=== PATIENT | male | born 1985 | race Caucasian/White ===

== ENCOUNTER 2017-04-27 20:01 | Emergency (ER) | payer BC, OTHER ==
[2017-04-27 20:13] VITALS: BP 120/69
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
[2017-04-27] MEDS ORDERED: HYDROCODONE/ACETAMINOPHEN 5-325 MG 6 TAB/DSPK PO PRN (21:22)
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
== END 2017-04-27 21:36 | disposition home or self-care (01) ==
LOC: ER 20:01
DX: S16.1XXA Strain of muscle, fascia and tendon at neck level, initial encounter (principal); R51 Headache; R42 Dizziness and giddiness; R11.0 Nausea; V89.2XXA Person injured in unspecified motor-vehicle accident, traffic, initial encounter
CPT/HCPCS: 99284; 70450; 72125; L0120

== ENCOUNTER 2017-07-31 15:08 | Inpatient (IN) | payer OTHER ==
[2017-07-31] MEDS ORDERED: DIPH/PERTUSS(ACELL)/TETANUS VAC/PF 0.5 ML SYR (>=10YO) IM ONE (16:08)
[2017-07-31] MEDS ORDERED: PIPERACILLIN/TAZOBACTAM 4.5 GM VIAL IV ONE (16:24)
--- NOTE | 2017-07-31 16:24 | RADIOLOGY REPORT (SQ) ---
EXAM DESCRIPTION: HAND LEFT 3 VIEWS COMPLETED DATE/TIME: 07/31/2017 4:16 pm REASON FOR STUDY: cat bite left index COMPARISON: None. EXAM PARAMETERS: NUMBER OF VIEWS: Three views. TECHNIQUE: AP, lateral and oblique radiographic images acquired of the left hand. LIMITATIONS: None. FINDINGS: MINERALIZATION: Normal. BONES: No acute fracture or dislocation. No worrisome bone lesions. JOINTS: No effusions. SOFT TISSUES: There is soft tissue swelling index finger. OTHER: No other significant finding. IMPRESSION: Soft tissue swelling. No osseous abnormality. TECHNICAL DOCUMENTATION: JOB ID: [id number] [employer]- All Rights Reserved Reading location - IP/workstation name: [email or web address]
--- NOTE | 2017-07-31 16:35 | ER Document Report ---
ED Animal Bite - General Chief Complaint: Cat Bite Stated Complaint: CAT BITE Time Seen by Provider: 07/31/17 16:02 Mode of Arrival: Ambulatory Information source: Patient TRAVEL OUTSIDE OF THE [place] IN LAST 30 DAYS: No - HPI Patient complains to provider of: left index finger bite Location of injury: LUE Severity of injury: Bitten Onset: Yesterday Type of animal: Cat Notes: Patient is here with complaints of left index finger bite by his cat which occurred yesterday. States that he was trying to give his A bath when the cat bit his left index finger at the proximal phalanx. This morning he woke up and noticed that the finger was red, swollen and painful. No drainage. No fever. He denies any numbness or tingling. He denies any nausea, vomiting, diarrhea. He believes his last tetanus was approximately 8 years ago. He denies any chest pain or shortness of breath. He has no other complaints. Pain is worse with extension as well as palpation of the finger, nothing seems to make it better. - Related Data Allergies/Adverse Reactions: No Known Allergies Allergy (Verified 07/31/17 15:10) Past Medical History - Social History Smoking Status: Unknown if Ever Smoked Family History: Reviewed & Not Pertinent Patient has suicidal ideation: No Patient has homicidal ideation: No Renal/ Medical History: Denies: Hx Peritoneal Dialysis Past Surgical History: Reports: Hx Orthopedic Surgery - left wrist Review of Systems - Review of Systems -: Yes All other systems reviewed and negative Physical Exam - Vital signs Vitals: Temp Pulse Resp BP Pulse Ox 98.4 F 57 L 14 116/63 98 07/31/17 15:16 07/31/17 15:16 07/31/17 15:16 07/31/17 15:16 07/31/17 15:16 - Notes Notes: GENERAL: alert, cooperative, nontoxic, no distress. HEAD: normocephalic, atraumatic EYES: conjunctiva pink without discharge, no external redness or swelling. EARS: no external swelling, no external redness NOSE: atraumatic, no external swelling MOUTH/THROAT: mucous membranes moist and pink NECK: soft, supple, full range of motion, no meningismus. CHEST: no distress, lungs clear and equal throughout. No wheezing, rales, rhonchi. CARDIAC: regular rate and rhythm, no murmur, normal capillary refill, normal pulses. BACK: full range of motion, no CVA tenderness. EXTREMITIES: Small puncture wounds to the dorsal and palmar side of the left index finger at the proximal phalanx. Patient is noted to have swelling to the entire left index finger with most of the swelling being the proximal phalanx. Finger is in a mildly flexed position. He has tenderness along the flexor tendon as well as mild tenderness with extension of the finger. He has redness to the entire left index finger up to the MCP joint. Normal cap refill and sensation. NEURO: alert and oriented 3, no focal deficits, full range of motion of all extremities. PYSCH: appropriate mood, affect. Patient is cooperative. SKIN: pink, warm, dry, no rash. Course - Re-evaluation Re-evalutation: 07/31/17 16:35 Patient is nontoxic appearing with stable vitals. The patient was bit by his cat yesterday on the left index finger at the proximal phalanx and now has redness and swelling with flexion of the finger and exam findings consistent with early flexor tenosynovitis. Patient was seen and evaluated by Dr. [facility], he will be taking the patient to surgery. Patient had his tetanus updated. CBC, CMP, sed rate, CRP are currently pending at this time. X-ray shows no acute findings. Patient had his tetanus updated and was given IV Unasyn. - Vital Signs Vital signs: Temp Pulse Resp BP Pulse Ox 98.4 F 57 L 14 116/63 98 07/31/17 15:16 07/31/17 15:16 07/31/17 15:16 07/31/17 15:16 07/31/17 15:16 - Diagnostic Test Radiology reviewed: Image reviewed, Reports reviewed - No acute findings. Discharge - Discharge Clinical Impression: Flexor tenosynovitis of finger Cat bite of finger Qualifiers: Encounter type: initial encounter Qualified Code(s): S61.259A - Open bite of unspecified finger without damage to nail, initial encounter; W55.01XA - Bitten by cat, initial encounter; W55.01XA - Bitten by cat, initial encounter Condition: Stable Disposition: ADMITTED INPATIENT Admitting Provider: [facility] Admitted: Surgical Floor
--- NOTE | 2017-07-31 16:40 | PDOC H&P ---
History of Present Illness Patient complains of: Bite left index finger History of Present Illness: EDITH FISCHER is a 31 year old male who sustained a cat bite to his left index finger from his cat yesterday at around noon. He attempted to get the cats mouth office finger which he feels as though possibly worsened the bite wound. He denies numbness or tingling but has noticed increasing redness swelling and pain over the past 24 hours with difficulty straightening his finger. Pain 7/10. Denies fever or chills. Past Medical History Medical History: None Past Surgical History Past Surgical History: Reports: Orthopedic Surgery - left wrist Social History Smoking Status: Unknown if Ever Smoked Family History Family History: Reviewed & Not Pertinent Parental Family History Reviewed: No Children Family History Reviewed: No Sibling(s) Family History Reviewed.: No Medication/Allergy Home Medications: Cyclobenzaprine HCl [Flexeril 10 Mg Tablet] 10 mg PO TID #15 tablet 04/27/17 Naproxen [Naprosyn 250 Nmg Tablet] 1 tab PO BID #14 tablet 04/27/17 Allergies/Adverse Reactions: No Known Allergies Allergy (Verified 07/31/17 15:10) Review of Systems Constitutional: ABSENT: chills, fever(s), headache(s), weight gain, weight loss Eyes: ABSENT: visual disturbances Ears: ABSENT: hearing changes Cardiovascular: ABSENT: chest pain, dyspnea on exertion, edema, orthropnea, palpitations Respiratory: ABSENT: cough, hemoptysis Gastrointestinal: ABSENT: abdominal pain, constipation, diarrhea, hematemesis, hematochezia, nausea, vomiting Genitourinary: ABSENT: dysuria, hematuria Musculoskeletal: PRESENT: as per HPI Integumentary: ABSENT: rash, wounds Neurological: ABSENT: abnormal gait, abnormal speech, confusion, dizziness, focal weakness, syncope Psychiatric: ABSENT: anxiety, depression, homidical ideation, suicidal ideation Endocrine: ABSENT: cold intolerance, heat intolerance, menstrual abnormalities, polydipsia, polyuria Hematologic/Lymphatic: ABSENT: easy bleeding, easy bruising, lymphadenopathy Physical Exam Vital Signs: Temp Pulse Resp BP Pulse Ox 98.4 F 57 L 14 116/63 98 07/31/17 15:16 07/31/17 15:16 07/31/17 15:16 07/31/17 15:16 07/31/17 15:16 Intake & Output 07/30/17 07/31/17 08/01/17 06:59 06:59 06:59 Weight 71.2 kg General appearance: PRESENT: no acute distress, well-developed, well-nourished Head exam: PRESENT: atraumatic, normocephalic Eye exam: PRESENT: conjunctiva pink, EOMI, PERRLA. ABSENT: scleral icterus Ear exam: PRESENT: normal external ear exam Mouth exam: PRESENT: moist, tongue midline Neck exam: PRESENT: full ROM. ABSENT: carotid bruit, JVD, lymphadenopathy, thyromegaly Respiratory exam: PRESENT: unlabored Cardiovascular exam: PRESENT: RRR. ABSENT: diastolic murmur, rubs, systolic murmur Pulses: PRESENT: normal dorsalis pedis pul, +2 pedal pulses bilateral Vascular exam: PRESENT: normal capillary refill GI/Abdominal exam: PRESENT: normal bowel sounds, soft. ABSENT: distended, guarding, mass, organolmegaly, rebound, tenderness Rectal exam: PRESENT: deferred Musculoskeletal exam: PRESENT: other - Left index finger: Redness and swelling throughout the index finger. Fusiform swelling noted. Tenderness on the A1 kwabena, A2 kwabena and distally. Pain with passive extension. Light wounds volar and dorsal no active drainage. Cap refill less than 2 seconds. No sensory deficits. Intact DIP/PIP flexion. Neurological exam: PRESENT: alert, awake, oriented to person, oriented to place , oriented to time, oriented to situation, CN II-XII grossly intact. ABSENT: motor sensory deficit Psychiatric exam: PRESENT: appropriate affect, normal mood. ABSENT: homicidal ideation, suicidal ideation Skin exam: PRESENT: dry, intact, warm. ABSENT: cyanosis, rash Results Impressions: Hand X-Ray 07/31/17 16:08 IMPRESSION: Soft tissue swelling. No osseous abnormality. Status: Image reviewed by me - I have reviewed patient's radiographs which demonstrate evidence of soft tissue swelling. No osseous abnormality. Assessment & Plan - Diagnosis (1) Flexor tenosynovitis of finger Is this a current diagnosis for this admission?: Yes Plan: Patient has findings of flexor tenosynovitis of his left index finger. Today we discussed treatment options. Given the severity and worsening it may occur especially given patient's mechanism of injury decision was made to proceed with operative treatment which includes irrigation debridement left index finger flexor sheath. Risks and benefits of the surgical procedure have been explained to the patient risks including neurovascular risk, postoperative pain , postoperative stiffness, worsening infection requiring repeat operative intervention he has verbalized understanding consented for the procedure.
[2017-07-31] MEDS ORDERED: FENTANYL CITRATE INJ/PF 100 MCG/2 ML AMPUL ONE (16:44)
[2017-07-31] MEDS ORDERED: MIDAZOLAM 2 MG/2 ML INJ ONE (16:44)
[2017-07-31] MEDS ORDERED: PROPOFOL INJ 200 MG/20 ML VIAL IV ONE (16:44)
[2017-07-31] MEDS ORDERED: ACETAMINOPHEN 100 ML IV ONE (16:45)
[2017-07-31 16:59] LABS: ABSOLUTE BASOPHILS # (AUTO) 0.1 10^3/uL (0.0-0.2); ABSOLUTE EOSINOPHILS # (AUTO) 0.1 10^3/uL (0.0-0.6); ABSOLUTE LYMPHOCYTES (AUTO) 3.3 10^3/uL (0.5-4.7); ABSOLUTE MONOCYTES (AUTO) 0.8 10^3/uL (0.1-1.4); ABSOLUTE NEUT (AUTO) 5.4 10^3/uL (1.7-8.2); BASOPHILS % (AUTO) 0.7 % (0-2); EOSINOPHILS % (AUTO) 0.9 % (0-6); HEMOGLOBIN 14.5 g/dL (13.5-17.0); LYMPHOCYTES % (AUTO) 34.1 % (13-45); MEAN CORPUSCULAR HEMOGLOBIN 31.9 pg (27.0-33.4); MEAN CORPUSCULAR HGB CONC 34.6 g/dL (32.0-36.0); MEAN CORPUSCULAR VOLUME 92 fl (80-97); MONOCYTES % (AUTO) 8.1 % (3-13); PLATELET COUNT 227 10^3/uL (150-450); RED BLOOD COUNT 4.55 10^6/uL (4.35-5.55); RED CELL DISTRIBUTION WIDTH 14.1 % (11.5-14.0); SEGMENTED NEUTROPHILS % (AUTO) 56.2 % (42-78); TOTAL CELLS COUNTED % (AUTO) 100 %; WHITE BLOOD COUNT 9.6 10^3/uL (4.0-10.5)
[2017-07-31 17:22] LABS: ALANINE AMINOTRANSFERASE 27 U/L (21-72); ALBUMIN 4.8 g/dL (3.5-5.0); ALKALINE PHOSPHATASE 52 U/L (38-126); ANION GAP 11 (5-19); ASPARTATE AMINO TRANSFERASE 17 U/L (17-59); BILIRUBIN,DIRECT 0.3 mg/dL (0.0-0.4); BILIRUBIN,TOTAL 0.7 mg/dL (0.2-1.3); BLOOD UREA NITROGEN 12 mg/dL (7-20); C-REACTIVE PROTEIN 25.7 mg/L (<10.0); CALCIUM 9.8 mg/dL (8.4-10.2); CARBON DIOXIDE 25 mmol/L (22-30); CHLORIDE 108 mmol/L (98-107); GLUCOSE 75 mg/dL (75-110); POTASSIUM 4.5 mmol/L (3.6-5.0); SODIUM 143.8 mmol/L (137-145); TOTAL PROTEIN 8.3 g/dL (6.3-8.2)
[2017-07-31 17:41] LABS: ERYTHROCYTE SEDIMENTATION RATE 17 mm/hr (0-15)
[2017-07-31] MEDS ORDERED: LIDOCAINE 1% INJ-PF (10 MG/ML) 30 ML SDV ONE (18:06)
[2017-07-31] MEDS ORDERED: BACITRACIN INJ 50,000 UNIT VIAL ONE (18:06)
[2017-07-31] MEDS ORDERED: BUPIVACAINE HCL 0.25 % INJ/PF (2.5 MG/1 ML) 30 ML VIAL ONE (18:06)
[2017-07-31] MEDS ORDERED: ONDANSETRON 4 MG TAB.RAPDIS PO PRN (18:23)
[2017-07-31] MEDS ORDERED: DIPHENHYDRAMINE HCL 50 MG/ML VIAL IV PRN ×2 (18:23→18:34)
[2017-07-31] MEDS ORDERED: MAG HYDROX/AL HYDROX/SIMETH SUSP 30 ML UDCUP PO PRN (18:25)
[2017-07-31] MEDS ORDERED: MEPERIDINE HCL/PF INJ 25 MG/1 ML DISP.SYRIN IV PRN (18:34)
[2017-07-31] MEDS ORDERED: FENTANYL CITRATE INJ/PF 100 MCG/2 ML AMPUL IV PRN ×3 (18:34)
[2017-07-31] MEDS ORDERED: OXYCODONE-ACETAMINOPHEN 5-325 MG TABLET PO PRN ×2 (18:34)
[2017-07-31] MEDS ORDERED: PROMETHAZINE HCL INJ 25 MG/1 ML VIAL IV PRN ×2 (18:34)
--- NOTE | 2017-07-31 18:49 | Operative Report ---
Operative Report DATE OF SURGERY: 07/31/17 PREOPERATIVE DIAGNOSIS: Flexor tenosynovitis left index finger POSTOPERATIVE DIAGNOSIS: Same OPERATION: Irrigation debridement tendon sheath left index finger SURGEON: TRINH DSOUZA ANESTHESIA: LMAC TISSUE REMOVED OR ALTERED: Aerobic and anaerobic cultures COMPLICATIONS: None ESTIMATED BLOOD LOSS: Minimal PROCEDURE: Indication for above procedure: 31-year-old male who sustained a cat bite injury to his left index finger PIP joint. Over the past 24 hours noticed increasing redness swelling and pain. Patient presented to the emergency room where there were concerns for flexor tenosynovitis. Upon consultation I felt patient had evidence of either early or actual flexor tenosynovitis. At that point I discussed treatment options including operative versus nonoperative intervention. Risks and benefits were explained to the patient, patient verbalized understanding consented for the procedure. . Procedure In Detail: Patient was seen and evaluated in the preoperative holding area. The LEFT upper extremity was initialized and marked. Patient received 2g of Ancef IV for bacterial prophylaxis. Patient was taken back to the operative room where transferred to the operative table. Once they were adequately anesthetized a nonsterile tourniquet was placed on the upper extremity. A surgical team debriefing was performed ensuring all instrumentation was available, the surgical procedure was discussed with possible concerns reviewed. A digital block was performed utilizing 10 mL 50:50 mixture of 0.5% Marcaine and 1% lidocaine without epinephrine. The upper extremity was prepped with chlorhexidine and alcohol and draped in a sterile fashion. A timeout was done identifying correct patient, procedure and extremity everyone in attendance agree with this and verbalized no concerns. The extremity was exsanguinated the tourniquet was inflated to 200 mmHg. Longitudinal skin incision was made centered over the A1 kwabena of the index finger. The radial and ulnar neurovascular bundles were identified and retracted from the wound. The A1 kwabena was identified and incised. The A1 kwabena was released to the level of the A2 kwabena but not through the A2 kwabena. There was cloudy appearing fluid but no gross purulence. The palmar aponeurotic kwabena was released proximal to the A1 kwabena. A second oblique skin incision was made over the volar wound at the level of the PIP joint. Blunt dissection was once again performed. The A3 kwabena was then incised. Further irrigation was performed once again mild cloudy appearing material but no gross purulence. A third and final incision was made just proximal to the DIP joint. Blunt dissection was performed the cruciate kwabena at this level was opened no gross purulence or fluid was appreciated at this level. The wound was then copiously irrigated with normal saline. I then passed a pediatric feeding tube from proximal to distal and irrigated through the feeding tube. The feeding tube was left in place to act as a drain. Skin incisions were closed with interrupted 4-0 nylon suture. We will dressed with Xeroform 4 x 4's and a soft dressing. Sponge counts, instrument counts, needle counts counts were correct. Patient was then awoken from anesthesia. Transferred from the operating room table to the operating room stretcher. There was no intraoperative complications patient tolerated procedure well stable to PACU. Postoperative plan: Patient will be started on Augmentin to cover Pasteurella species. Depending on clinical examination findings anticipate discharge within 24-48 hours
[2017-07-31] MEDS: OXYCODONE HCL IR 5 MG TABLET PO PRN (21:06)
[2017-07-31] MEDS: OXYCODONE HCL SR 10 MG TABLET PO SCH (21:52)
[2017-08-01] MEDS: KETOROLAC TROMETHAMINE INJ/PF 30 MG/1 ML SDV IV SCH ×5 (00:06→23:40)
[2017-08-01] MEDS: AMPICILLIN SOD/SULBACTAM 3 GM VIAL IV SCH ×5 (00:06→23:39)
[2017-08-01] MEDS ORDERED: ACETAMINOPHEN 100 ML IV ONE (00:23)
[2017-08-01 07:41] LABS: HEMATOCRIT 36.4 % (37.9-51.0); MEAN CORPUSCULAR HEMOGLOBIN 31.4 pg (27.0-33.4); MEAN CORPUSCULAR HGB CONC 33.9 g/dL (32.0-36.0); MEAN CORPUSCULAR VOLUME 93 fl (80-97); PLATELET COUNT 201 10^3/uL (150-450); RED BLOOD COUNT 3.93 10^6/uL (4.35-5.55); RED CELL DISTRIBUTION WIDTH 14.1 % (11.5-14.0); WHITE BLOOD COUNT 10.3 10^3/uL (4.0-10.5)
[2017-08-01 07:46] LABS: HEMOGLOBIN 12.4 g/dL (13.5-17.0)
[2017-08-01 07:54] LABS: ANION GAP 10 (5-19); BLOOD UREA NITROGEN 14 mg/dL (7-20); CALCIUM 8.9 mg/dL (8.4-10.2); CARBON DIOXIDE 24 mmol/L (22-30); CHLORIDE 108 mmol/L (98-107); GLUCOSE 78 mg/dL (75-110); POTASSIUM 4.2 mmol/L (3.6-5.0); SODIUM 141.6 mmol/L (137-145)
[2017-08-01] MEDS: OXYCODONE HCL SR 10 MG TABLET PO SCH ×2 (11:12→22:04)
[2017-08-01] MEDS: OXYCODONE HCL IR 5 MG TABLET PO PRN (17:33)
--- NOTE | 2017-08-01 18:26 | PDOC PROGRESS REPORT ---
Subjective Progress Note for:: 08/01/17 Subjective:: 81-year-old white male 1 day status post irrigation and drainage left index finger flexor tenosynovitis. Patient sitting upright in hospital bed comfortable. His OpSite compression dressing is in place and clean dry and intact. Patient is curious when he can be discharged. It was relayed to patient that we would like to await results of intraoperative cultures drawn to assure that they were negative before discharge. Patient voiced understanding and is in agreement with this plan. Reason For Visit: FLEXOR TENOSYNOVITIS OF LEFT INDEX FINGER Physical Exam Vital Signs: Temp Pulse Resp BP Pulse Ox 36.8 C 51 L 15 106/72 100 08/01/17 15:27 08/01/17 15:27 08/01/17 15:27 08/01/17 15:27 08/01/17 15:27 Intake & Output 07/31/17 08/01/17 08/02/17 06:59 06:59 06:59 Intake Total 1700 1221 Output Total 1000 Balance 700 1221 General appearance: PRESENT: no acute distress, well-developed, well-nourished Head exam: PRESENT: atraumatic, normocephalic Eye exam: PRESENT: EOMI Mouth exam: PRESENT: moist Respiratory exam: PRESENT: unlabored Pulses: PRESENT: normal dorsalis pedis pul, +2 pedal pulses bilateral Vascular exam: PRESENT: normal capillary refill Additional comments: Patient sitting upright in hospital bed. Postoperative compression dressing is placed on left index finger and hand. It is clean dry and intact. This is left in place. He maintains full range of flexors and extensors of all digits. Less than 2 seconds capillary refill to all fingers. No sensory motor deficits. Slight tingling and numbness noted along the palmar aspect of left index finger. Musculoskeletal exam: PRESENT: ambulatory Additional comments: No sensorimotor deficits noted, arm lengths equal distal neurovascular exam intact. Patient will initiate gentle range of motion exercises once postoperative compression dressing is removed. Neurological exam: PRESENT: alert, awake, oriented to person, oriented to place , oriented to time, oriented to situation, CN II-XII grossly intact. ABSENT: motor sensory deficit Psychiatric exam: PRESENT: appropriate affect, normal mood. ABSENT: homicidal ideation, suicidal ideation Skin exam: PRESENT: dry, intact, warm. ABSENT: cyanosis, rash Results Laboratory Results: 08/01/17 06:43 03/21/18 06:43 08/01/17 08/01/17 06:43 06:43 WBC 10.3 RBC 3.93 L Hgb 12.4 L D Hct 36.4 L MCV 93 MCH 31.4 MCHC 33.9 RDW 14.1 H Plt Count 201 Sodium 141.6 Potassium 4.2 Chloride 108 H Carbon Dioxide 24 Anion Gap 10 BUN 14 Creatinine 0.82 Est GFR ( Amer) > 60 Est GFR (Non-Af Amer) > 60 Glucose 78 Calcium 8.9 Impressions: Hand X-Ray 07/31/17 16:08 IMPRESSION: Soft tissue swelling. No osseous abnormality. Assessment & Plan - Diagnosis (1) Flexor tenosynovitis of finger Is this a current diagnosis for this admission?: Yes - Plan Summary Plan Summary: 31-year-old white male 1 day status post irrigation and drainage left index finger flexor Zaira synovitis. Patient's OpSite compression dressing clean dry and intact. This is left in place. No sensory motor deficits at this time. We are awaiting intraoperative culture results. Pending negative results, patient will be discontinued from IV antibiotics and transitioned to p.o. antibiotics. His white blood cell count remains within normal acceptable levels. I do not anticipate patient remaining in hospital through the weekend. He will likely be discharged once with cultures are completed. Patient understands and is in agreement with this plan. He will initiate gentle range of motion exercises once discharged from the hospital and his compression dressing is removed. He will follow-up with [facility] for surgery and Dr. Driscoll 10 days postoperatively for reevaluation.
[2017-08-02] MEDS: KETOROLAC TROMETHAMINE INJ/PF 30 MG/1 ML SDV IV SCH ×3 (05:03→18:12)
[2017-08-02] MEDS: AMPICILLIN SOD/SULBACTAM 3 GM VIAL IV SCH ×3 (05:04→18:14)
[2017-08-02 07:01] LABS: MEAN CORPUSCULAR HEMOGLOBIN 32.1 pg (27.0-33.4); MEAN CORPUSCULAR HGB CONC 34.2 g/dL (32.0-36.0); MEAN CORPUSCULAR VOLUME 94 fl (80-97); PLATELET COUNT 206 10^3/uL (150-450); RED BLOOD COUNT 4.05 10^6/uL (4.35-5.55); RED CELL DISTRIBUTION WIDTH 13.9 % (11.5-14.0); WHITE BLOOD COUNT 8.1 10^3/uL (4.0-10.5)
[2017-08-02] MEDS ORDERED: INFLUENZA ADLT QUAD (36MOS+) 2017-18 VAC 0.5 ML SYR IM PRN (09:37)
[2017-08-02] MEDS: OXYCODONE HCL SR 10 MG TABLET PO SCH (10:00)
[2017-08-02] MEDS: OXYCODONE HCL IR 5 MG TABLET PO PRN ×2 (15:04→21:25)
--- NOTE | 2017-08-02 20:14 | PDOC PROGRESS REPORT ---
Subjective Progress Note for:: 08/02/17 Subjective:: Patient states the pain is better controlled today. No issues overnight. Reason For Visit: FLEXOR TENOSYNOVITIS OF LEFT INDEX FINGER Physical Exam Vital Signs: Temp Pulse Resp BP Pulse Ox 36.6 C 59 L 16 119/68 98 08/02/17 14:09 08/02/17 14:09 08/02/17 14:09 08/02/17 14:09 08/02/17 14:09 Intake & Output 08/01/17 08/02/17 08/03/17 06:59 06:59 06:59 Intake Total 1700 2020 Output Total 1000 Balance 700 2020 Adult Front & Back Image: 1 - Dressing is dry clean and intact with small area of shadowing from drainage. Drain still in place. Sensation to light touch and good capillary refill Results Laboratory Results: 08/02/17 06:39 08/01/17 06:43 08/02/17 06:39 WBC 8.1 RBC 4.05 L Hgb 13.0 L Hct 38.0 MCV 94 MCH 32.1 MCHC 34.2 RDW 13.9 Plt Count 206 Impressions: Hand X-Ray 07/31/17 16:08 IMPRESSION: Soft tissue swelling. No osseous abnormality. Assessment & Plan - Plan Summary Plan Summary: 31-year-old gentleman status post I&D of a flexor tenosynovitis in the left hand. Awaiting any growth from cultures. Anticipate discharge tomorrow.
[2017-08-03] MEDS: AMPICILLIN SOD/SULBACTAM 3 GM VIAL IV SCH ×2 (00:46→08:25)
[2017-08-03] MEDS: OXYCODONE HCL IR 5 MG TABLET PO PRN ×2 (03:16→08:36)
[2017-08-03 06:45] LABS: HEMATOCRIT 38.7 % (37.9-51.0); HEMOGLOBIN 13.4 g/dL (13.5-17.0); MEAN CORPUSCULAR HEMOGLOBIN 31.6 pg (27.0-33.4); MEAN CORPUSCULAR HGB CONC 34.5 g/dL (32.0-36.0); MEAN CORPUSCULAR VOLUME 92 fl (80-97); PLATELET COUNT 226 10^3/uL (150-450); RED BLOOD COUNT 4.22 10^6/uL (4.35-5.55); RED CELL DISTRIBUTION WIDTH 13.6 % (11.5-14.0); WHITE BLOOD COUNT 8.7 10^3/uL (4.0-10.5)
[2017-08-03] MEDS ORDERED: AMPICILLIN SOD/SULBACTAM 3 GM VIAL ONE (08:07)
[2017-08-03 11:38] VITALS: BP 116/63
--- NOTE | 2017-08-07 11:50 | PDOC DISCHARGE SUMMARY ---
General - Admit/Disc Date/PCP Admission Date/Primary Care Provider: 07/31/17 18:25 Discharge Date: 08/03/17 - Discharge Diagnosis (1) Flexor tenosynovitis of finger Is this a current diagnosis for this admission?: Yes - Additional Information Resuscitation Status: Full Code Prescriptions: Amox Tr/Potassium Clavulanate [Augmentin 875-125 mg Tablet] 1 tab PO BID #20 tablet Oxycodone HCl/Acetaminophen [Percocet 5-325 mg Tablet] 1 - 2 tab PO ASDIR PRN # 25 tablet PRN Reason: Home Medications: Amox Tr/Potassium Clavulanate [Augmentin 875-125 mg Tablet] 1 tab PO BID #20 tablet 08/03/17 Oxycodone HCl/Acetaminophen [Percocet 5-325 mg Tablet] 1 - 2 tab PO ASDIR PRN # 25 tablet 08/03/17 History of Present Illness History of Present Illness: EDITH FISCHER is a 31 year old male who sustained a cat bite to his left index finger from his cat yesterday at around noon. He attempted to get the cats mouth office finger which he feels as though possibly worsened the bite wound. He denies numbness or tingling but has noticed increasing redness swelling and pain over the past 24 hours with difficulty straightening his finger. Pain 7/10. Denies fever or chills. Hospital Course Hospital Course: Patient was admitted to orthopedic service on 08/01/17 with diagnosis of flexor tenosynovitis of his left index finger. Patient was started on Unasyn for coverage of possible offending bacteria. He continued on IV antibiotics for the next 72 hours. Cultures continue to demonstrate no evidence of growth. On 08/03/17 dressing was changed and drain was removed. Patient had some residual swelling but his pain had nearly improved. Denies fever chills or sweats. Given the lack of growth and patient's clinical improvement decision was made for discharge to home. Physical Exam Vital Signs: Temp Pulse Resp BP Pulse Ox 98.0 F 50 L 16 114/72 98 08/03/17 04:08 08/03/17 04:08 08/03/17 04:08 08/03/17 04:08 08/03/17 04:08 Intake & Output 08/02/17 08/03/17 08/04/17 06:59 06:59 06:59 Intake Total 2021 Balance 2020 General appearance: PRESENT: no acute distress, well-developed, well-nourished Head exam: PRESENT: atraumatic, normocephalic Eye exam: PRESENT: conjunctiva pink, EOMI, PERRLA. ABSENT: scleral icterus Ear exam: PRESENT: normal external ear exam Mouth exam: PRESENT: moist, tongue midline Neck exam: PRESENT: full ROM. ABSENT: carotid bruit, JVD, lymphadenopathy, thyromegaly Cardiovascular exam: PRESENT: RRR. ABSENT: diastolic murmur, rubs, systolic murmur Pulses: PRESENT: normal dorsalis pedis pul, +2 pedal pulses bilateral Vascular exam: PRESENT: normal capillary refill GI/Abdominal exam: PRESENT: normal bowel sounds, soft. ABSENT: distended, guarding, mass, organolmegaly, rebound, tenderness Rectal exam: PRESENT: deferred Musculoskeletal exam: PRESENT: other - Left index finger: Surgical incisions healing mild serosanguineous drainage. No evidence of purulence drainage. Erythema and swelling notably improved. Continues to have pain with forced terminal flexion and extension. Cap refill less than 2 seconds no sensory deficits. Neurological exam: PRESENT: alert, awake, oriented to person, oriented to place , oriented to time, oriented to situation, CN II-XII grossly intact. ABSENT: motor sensory deficit Psychiatric exam: PRESENT: appropriate affect, normal mood. ABSENT: homicidal ideation, suicidal ideation Skin exam: PRESENT: dry, intact, warm. ABSENT: cyanosis, rash Results Laboratory Results: 08/03/17 06:04 08/01/17 06:43 08/03/17 06:04 WBC 8.7 RBC 4.22 L Hgb 13.4 L Hct 38.7 MCV 92 MCH 31.6 MCHC 34.5 RDW 13.6 Plt Count 226 Impressions: Hand X-Ray 07/31/17 16:08 IMPRESSION: Soft tissue swelling. No osseous abnormality. Qualifiers - * PATEINT BEING DISCHARGED WITH ANY OF THE FOLLOWING DIAGNOSIS?: No Plan Discharge Plan: Given the fact patient has failed to see growth but there is clinical improvement decision was made for patient to be discharged home with p.o. antibiotics. If cultures change or sensitivities demonstrate alternative bacteria will change his antibiotics. Current plan is discharge home on Augmentin. Patient will follow-up the office in 10 days for recheck or sooner if issues arise including increasing pain, redness, drainage temperature greater than 101.5. Patient was read above instructions understood above instructions is orthopedically stable for discharge to home.
== END 2017-08-03 12:30 | disposition home or self-care (01) | DRG 581 ==
LOC: OROUT 15:08 → EH 16:46 → INTOOBSV 16:46 → OBSVTOIN 18:25 → 2N 19:40
PROVIDERS: ADMIT Orthopaedic Surgery; ATTEND Orthopaedic Surgery
PROC: 0LD80ZZ Extraction of Left Hand Tendon, Open Approach (ICD-10-PCS; 2017-07-31)
PROC: 3E0234Z Introduction of Serum, Toxoid and Vaccine into Muscle, Percutaneous Approach (ICD-10-PCS; 2017-07-31)
PROC: 0LN80ZZ Release Left Hand Tendon, Open Approach (ICD-10-PCS; principal; 2017-07-31 16:30)
DX: S61.251A Open bite of left index finger without damage to nail, initial encounter (principal); M65.142 Other infective (teno)synovitis, left hand; W55.01XA Bitten by cat, initial encounter; Y92.002 Bathroom of unspecified non-institutional (private) residence as the place of occurrence of the external cause; Z23 Encounter for immunization
CPT/HCPCS: 01810; 36415; 80048; 80053; 85025; 85027; 85652; 86140; 87040; 87070; 87075; 87205; 90471; 90715; 96374; 99284; B4082; J0131; J0295; J1200; J1885; J2250; J2543; J2704; J3010; J3490